=== PATIENT | female | born 1965 ===

== ENCOUNTER → 2018-03-28 13:51 | Outpatient (REF) | payer BC, SELFPAY | LOC: LAB 13:51 | PROVIDERS: Visit Provider Physician Assistant | DX: Z48.02 Encounter for removal of sutures (principal) | CPT/HCPCS: 87070; 87077; 87147; 87186; 87205 ==

== ENCOUNTER → 2018-04-23 14:32 | Outpatient (REF) | payer BC, SELFPAY | LOC: LAB 14:32 | PROVIDERS: Visit Provider Dermatology MOHS-Micrographic Surgery | DX: Z48.817 Encounter for surgical aftercare following surgery on the skin and subcutaneous tissue (principal) | CPT/HCPCS: 87070; 87075; 87077; 87147; 87186; 87205 ==